=== PATIENT | male | born 1965 | race Caucasian/White ===

== ENCOUNTER 2018-07-07 07:09 | Day surgery (SDC) | payer BC ==
[2018-07-07] VITALS (8 sets, daily range): BP systolic 113–128; BP diastolic 60–82; PULSE 60–64; RESP 10–22; Ht 180.3 cm; Wt 87.4 kg
[~2018-07-07] VITALS: Ht 180.3 cm; Wt 87.4 kg
[~2018-07-07 07:09] MED LIST: ASPIRIN; FENTAnyl 50 MCG/ML VIAL ONE; MIDAZOLAM 1 MG/ML 2 ML INJ ONE
[2018-07-07] MEDS ORDERED: LIDOCAINE 2% (MDV) 20 ML INJ ONE (09:15)
[2018-07-07] MEDS ORDERED: IOHEXOL 300MG/ML 30 ML BTL ONE (09:16)
[2018-07-07] MEDS ORDERED: TRIAMCINOLONE ACET 40 MG/ML INJ ONE (09:16)
--- NOTE | 2018-07-07 09:21 | PREAC ---
Date/Time of Note Date/Time of Note DATE: 07/07/18 TIME: 09:20 Anesthesia Eval and Record Evaluation Time Pre-Procedure Interview DATE: 07/07/18 TIME: 09:20 Age 53 Sex male NPO: 8 hrs Preoperative diagnosis cervical disk herniation Planned procedure cervical epidural injection Past Medical History Past Medical History: None Surgery & Anesthesia Issues No known issue Meds Anticoagulation: No Beta Jarvis within 24 hr: No Reason Beta Jarvis not given: Pt. not on B-Jarvis Reported Medications [Aspirin] No Conflict Check 01/14/15 Meds reviewed: Yes Allergies Coded Allergies: No Known Allergy (Unverified , 01/14/15) Allergies Reviewed: Yes Labs/Studies Labs Reviewed: Reviewed by anesthesiologist test: N/A Pre-procedure Exam Last vitals Vital Signs Date Temp Pulse Resp B/P (MAP) Pulse Ox O2 O2 Flow FiO2 Time Delivery Rate 07/07/18 97.7 62 18 113/60 99 Room Air 07:42 (77) Airway: Adequate mouth opening, Adequate thyromental dist Mallampati: Mallampati IV Teeth: Normal Lung: Normal Heart: Normal ASA Physical Status ASA physical status: 2 Emergency: None Pre-operative Attestations Prior to commencing anesthesia and surgery, the patient was re-evaluated, there was verification of: *The patient's identity *The results of appropriate recent lab work and preoperative vital signs *The above evaluation not changing prior to induction *Anesthetic plan, risk benefits, alternative and complications discussed with patient/family; questions answered; patient/family understands, accepts and wishes to proceed. ANNIE BALLARD DO Jul 07, 2018 09:20
--- NOTE | 2018-07-07 09:21 | HPN ---
Date/Time of Note Date/Time of Note DATE: 07/07/18 TIME: 09:20 Interval H&P Admission Note Pt. seen H&P reviewed: No system changes FAMILIA ROMERO MD Jul 07, 2018 09:21
--- NOTE | 2018-07-07 10:07 | PAC ---
Date/Time of Note Date/Time of Note DATE: 07/07/18 TIME: 10:06 Post-Anesthesia Notes Post-Anesthesia Note Last documented vital signs Vital Signs Date Temp Pulse Resp B/P (MAP) Pulse Ox O2 O2 Flow FiO2 Time Delivery Rate 07/07/18 98 75 18 115/60 99 Room Air 1006 Activity: WNL Respiratory function: WNL Cardiovascular function: WNL Mental status: Baseline Pain reasonably controlled: Yes Hydration appropriate: Yes Nausea/Vomiting absent: Yes ANNIE BALLARD DO Jul 07, 2018 10:07
--- NOTE | 2018-07-07 10:50 | SIPON ---
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
--- NOTE | 2018-07-07 10:55 | OPR ---
Date/Time of Note Date/Time of Note DATE: 07/07/18 TIME: 10:50 Operative Report Procedure Date: Jul 07, 2018 Preoperative Diagnosis cervical radiculopathy Postoperative Diagnosis cervical radiculopathy Operation/Procedure Performed C6-7 Epidural steroid injection Surgeon see signature line Service Electrician none Anesthesia Type: MAC Estimated Blood Loss: none Transfusion none Specimen none Grafts/Implants none Tubes/Drains none Complications none Procedure Description Consent was obtained, patient was brought to OR table in prone position, pres sure points was protected. Time out was done, neck are was prep'd. C6-7 space was identified by fluoroscopy, 1% lido was injected subcutaneously, 22G tuohy needle was placed with fluoro guidance into C6-7 Epidural space. Patient's VSS. He was transferred to post op area for recovery and then discharged home in stable condition. FAMILIA ROMERO MD Jul 07, 2018 10:55
--- NOTE | 2018-07-07 18:52 | RADRPT ---
Vent Rate: 65 bpm RR Interval: 0 msec ID Interval: 146 msec QRS Duration: 92 msec QT Interval: 396 msec QTC Interval: 411 msec P-R-T Lamar: 57 - 25 - 30 degrees Normal sinus rhythm Normal ECG Electronically Signed By: Pipo Galan
== END 2018-07-07 10:57 | disposition home or self-care (01) ==
LOC: SDS 07:09
PROVIDERS: ATTEND Anesthesiology
DX: M54.12 Radiculopathy, cervical region (principal)
CPT/HCPCS: 62320; 72040; 93005; J2250; J3010; Q9967

== ENCOUNTER 2018-11-21 11:35 | Day surgery (SDC) | payer BC ==
[2018-11-21] VITALS (8 sets, daily range): BP systolic 119–126; BP diastolic 70–82; PULSE 49–126; RESP 16–19; Ht 180.3 cm; Wt 86.4 kg
[~2018-11-21] VITALS: Ht 180.3 cm; Wt 86.4 kg
--- NOTE | 2018-11-21 12:38 | HPN ---
Date/Time of Note Date/Time of Note DATE: 11/21/18 TIME: 12:38 Interval H&P Admission Note Pt. seen H&P reviewed: No system changes FAMILIA ROMERO MD Nov 21, 2018 12:38
--- NOTE | 2018-11-21 13:27 | PREAC ---
Date/Time of Note Date/Time of Note DATE: 11/21/18 TIME: 13:26 Anesthesia Eval and Record Evaluation Time Pre-Procedure Interview DATE: 11/21/18 TIME: 13:26 Age 53 Sex male NPO: 8 hrs Preoperative diagnosis CERVICAL DISC HERNIATION Planned procedure CERVICAL EPIDURAL INJECTION C6-C7 ON THE LEFT Past Medical History Past Medical History: None Surgery & Anesthesia Issues No known issue Meds Anticoagulation: No Beta Jarvis within 24 hr: No Reason Beta Jarvis not given: Pt. not on B-Jarvis Discontinued Scripts [none] No Conflict Check Prov:FAMILIA ROMERO MD 07/07/18 Meds reviewed: Yes Allergies Coded Allergies: No Known Drug Allergy (Unverified Allergy, Unknown, 11/21/18) Allergies Reviewed: Yes Labs/Studies Labs Reviewed: Reviewed by anesthesiologist test: N/A Pre-procedure Exam Last vitals Vital Signs Date Temp Pulse Resp B/P (MAP) Pulse Ox O2 O2 Flow FiO2 Time Delivery Rate 11/21/18 98.0 50 16 123/81 99 Room Air 12:34 (95) Airway: Adequate mouth opening, Adequate thyromental dist Mallampati: Mallampati II Teeth: Normal Lung: Normal Heart: Normal ASA Physical Status ASA physical status: 1 Emergency: None Planned Anesthetic General/MAC: MAC Pre-operative Attestations Prior to commencing anesthesia and surgery, the patient was re-evaluated, there was verification of: *The patient's identity *The results of appropriate recent lab work and preoperative vital signs *The above evaluation not changing prior to induction *Anesthetic plan, risk benefits, alternative and complications discussed with patient/family; questions answered; patient/family understands, accepts and wishes to proceed. Nathan Taylor M.D. Nov 21, 2018 13:27
[2018-11-21] MEDS ORDERED: ONDANSETRON 4 MG INJ IV PRN (13:30)
[2018-11-21] MEDS ORDERED: MEPERIDINE 25 MG INJ IV PRN (13:30)
[2018-11-21] MEDS ORDERED: ALBUTEROL 0.083% (NEB) 2.5 MG/3 ML AMP HHN PRN (13:30)
[2018-11-21] MEDS ORDERED: FENTAnyl 50 MCG/ML VIAL IV PRN ×3 (13:30)
[2018-11-21] MEDS ORDERED: DIPHENHYDRAMINE 50 MG INJ IV PRN (13:30)
[2018-11-21] MEDS ORDERED: TRIMETHOBENZAMIDE 100 MG/ML VIAL IM PRN (13:30)
[2018-11-21] MEDS ORDERED: MIDAZOLAM 1 MG/ML 2 ML INJ IV PRN (13:30)
[2018-11-21] MEDS ORDERED: IPRATROPIUM (NEB) 0.5 MG/2.5 ML AMP HHN PRN (13:30)
[2018-11-21] MEDS ORDERED: EPHEDrine 25 MG/5 ML SYG IV PRN (13:30)
[2018-11-21] MEDS ORDERED: hydrALAzine 20 MG INJ IV PRN (13:30)
[2018-11-21] MEDS ORDERED: LABETALOL HCL 20MG INJ IV PRN (13:30)
[2018-11-21] MEDS ORDERED: OXYCODONE/ACETAMINOPHEN (5/325) TAB PO PRN ×2 (13:30)
[2018-11-21] MEDS ORDERED: HYDROmorphONE 1 MG/5 ML IV SYRINGE IV PRN ×3 (13:30)
[2018-11-21] MEDS ORDERED: FENTAnyl 50 MCG/ML VIAL ONE (13:40)
[2018-11-21] MEDS ORDERED: MIDAZOLAM 1 MG/ML 2 ML INJ ONE (13:42)
[2018-11-21] MEDS ORDERED: LIDOCAINE 1% (MPF) 30 ML INJ ONE (13:43)
[2018-11-21] MEDS ORDERED: IOHEXOL 300MG/ML 30 ML BTL ONE (13:43)
[2018-11-21] MEDS ORDERED: BETAMET NA PHOS/AC(6 MG/ML) 5ML INJ ONE (13:43)
--- NOTE | 2018-11-21 14:14 | PAC ---
Date/Time of Note Date/Time of Note DATE: 11/21/18 TIME: 14:14 Post-Anesthesia Notes Post-Anesthesia Note Last documented vital signs Vital Signs Date Temp Pulse Resp B/P (MAP) Pulse Ox O2 O2 Flow FiO2 Time Delivery Rate 11/21/18 98.0 14:11 11/21/18 50 16 123/81 99 Room Air 12:34 (95) Activity: WNL Respiratory function: WNL Cardiovascular function: WNL Mental status: Baseline Pain reasonably controlled: Yes Hydration appropriate: Yes Nausea/Vomiting absent: Yes Nathan Taylor M.D. Nov 21, 2018 14:14
--- NOTE | 2018-11-21 14:18 | SIPON ---
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
--- NOTE | 2018-11-21 14:22 | OPR ---
Date/Time of Note Date/Time of Note DATE: 11/21/18 TIME: 14:18 Operative Report Procedure Date: Nov 21, 2018 Preoperative Diagnosis cervical radiculopathy Postoperative Diagnosis cervical radiculopathy Operation/Procedure Performed left C6-7 epidural steroid injection Surgeon see signature line Administrative Office Manager none Anesthesia Type: MAC Estimated Blood Loss: none Transfusion none Specimen none Grafts/Implants none Tubes/Drains none Complications none Pt Condition Post Procedure: stable Disposition: PACU Indications cervical radiculopathy Procedure Description Consent was obtained, patient was brought to OR table in prone position, pressure points was protected. Time out was done, neck are was prep'd. C6-7 space was identified by fluoroscopy, 1% lido was injected subcutaneously, 22G tuohy needle was placed with fluoro guidance into left C6-7 Epidural space. No CSF or blood was aspirated from tuohy needle. Omniopaque was injection and showed epidural distribution. 6mg betamethasone and NS 2ml were injected. Patient's VSS. He was transferred to post op area for recovery and then discharged home in stable condition FAMILIA ROMERO MD Nov 21, 2018 14:22
== END 2018-11-21 15:00 | disposition home or self-care (01) ==
LOC: SDS 11:35
PROVIDERS: ATTEND Anesthesiology
DX: M50.123 Cervical disc disorder at C6-C7 level with radiculopathy (principal)
CPT/HCPCS: 62320; 72040; J0702; J2250; J3010; Q9967